=== PATIENT | male | born 1995 | race Two or more races ===

== ENCOUNTER 2018-02-07 08:02 | Emergency (ER) | payer SELFPAY ==
[~2018-02-07] VITALS: Ht 170.2 cm; Wt 81.6 kg
[2018-02-07 08:29] VITALS: BP 139/63
--- NOTE | 2018-02-07 08:36 | PHYS DOC ---
Adult General Chief Complaint Chief Complaint: KNEE INJURY HPI HPI Patient is a 22 year old who presents to the emergency department with complaints of left knee pain. Patient states while he was working last night he hit the front of his left knee on a door. Patient denies any numbness, tingling , weakness, or laxity of the joint. Currently he states his pain as a 6 out of 10, he denies any for any pain medication. He states he has not taken anything for relief of his pain yet. Patient denies any medical or surgical history, he is not allergic to any medications and does not take any medications. Review of Systems Review of Systems Constitutional: Denies fever or chills [] Musculoskeletal: See history of present illness Integument: Reports abrasion to left knee Neurologic: Denies headache, focal weakness or sensory changes [] Endocrine: Denies polyuria or polydipsia [] All other systems were reviewed and found to be within normal limits, except as documented in this note. Physical Exam Physical Exam Constitutional: Well developed, well nourished, no acute distress, non-toxic appearance. [] HENT: Normocephalic, atraumatic, bilateral external ears normal, nose normal. [] Eyes: PERRLA, conjunctiva normal, no discharge. [] Skin: Warm, dry, no erythema, no rash; small abrasion noted to anterior left knee [] Extremities: No cyanosis, no clubbing, ROM intact, no edema; anterior left knee tender to palpation, no crepitus, negative anterior and posterior drawer testing , negative valgus stress testing [] Neurologic: Alert and oriented X 3, normal motor function, normal sensory function, no focal deficits noted. [] Psychologic: Affect normal, judgement normal, mood normal. [] Current Patient Data Vital Signs Vital Signs Date Time Temp Pulse Resp B/P (MAP) Pulse Ox O2 Delivery O2 Flow Rate FiO2 02/07/18 08:29 98.1 79 16 139/63 (88) 98 Room Air 98.1 EKG EKG [] Radiology/Procedures Radiology/Procedures PROCEDURE: KNEE LEFT 3V KNEE 3 VIEWS LEFT Clinical Indication: INJURED KNEE WORKING LAST NIGHT STEPPING OUT OF AMBULANCE. HIT KNEE ON DOOR. PAIN ANTERIOR KNEE. Comparison: None. Findings: There is no acute fracture or dislocation. The tricompartmental joint spaces are maintained. The patella is in anatomic position. There is no soft tissue abnormality identified radiographically. There is no joint effusion. IMPRESSION: No acute fracture. [] Course & Med Decision Making Course & Med Decision Making Pertinent Labs and Imaging studies reviewed. (See chart for details) [] Dragon Disclaimer Dragon Disclaimer This electronic medical record was generated, in whole or in part, using a voice recognition dictation system. Departure Departure Impression: Primary Impression: Left knee pain Additional Impressions: Contusion of left knee, initial encounter Abrasion, left knee, initial encounter Disposition: HOME, SELF-CARE Condition: STABLE Referrals: JACKSON CASAREZ MD (PCP) JOSE MANUEL [place] MD Patient Instructions: Knee Pain, [id number] Additional Instructions: Recommend application of ice, elevation, and rest of affected extremity. Follow- up with Dr. Ny or your primary care doctor if symptoms persist. Return to the ER if your symptoms worsen. Problem Qualifiers Primary Impression: Left knee pain Chronicity: acute Qualified Codes: M25.562 - Pain in left knee CHARISSE LEUNG ORE PUNCHER Feb 07, 2018 08:36
--- NOTE | 2018-02-07 09:12 | RAD ---
KNEE 3 VIEWS LEFT Clinical Indication: INJURED KNEE WORKING LAST NIGHT STEPPING OUT OF AMBULANCE. HIT KNEE ON DOOR. PAIN ANTERIOR KNEE. Comparison: None. Findings: There is no acute fracture or dislocation. The tricompartmental joint spaces are maintained. The patella is in anatomic position. There is no soft tissue abnormality identified radiographically. There is no joint effusion. IMPRESSION: No acute fracture. Electronically signed by: Paulino Drew MD (02/07/2018 9:08 AM) [id number]
== END 2018-02-07 09:30 | disposition home or self-care (01) ==
LOC: ER 08:02
DX: S80.02XA Contusion of left knee, initial encounter (principal); W20.8XXA Other cause of strike by thrown, projected or falling object, initial encounter; Y93.89 Activity, other specified; Y92.89 Other specified places as the place of occurrence of the external cause; Y99.0 Civilian activity done for income or pay
CPT/HCPCS: 73562; 99283

== ENCOUNTER → 2019-12-02 | Outpatient (CLI) | payer OTHER ==
--- NOTE | 2019-12-02 16:11 | CARD ---
MR#: [id number] Date of Study: 12/02/2019 Ordering Physician: SHERINE MARTINEZ, Referring Physician: SHERINE MARTINEZ, Tech: Annalee Javed [facility] APPROVED REPORT EXAM: Two-dimensional and M-mode echocardiogram with Doppler and color Doppler. Other Information Quality : Good INDICATION Murmur 2D DIMENSIONS RVDd2.8 (2.9-3.5cm)Left Atrium(2D)3.1 (1.6-4.0cm) IVSd0.9 (0.7-1.1cm)Aortic Root(2D)2.8 (2.0-3.7cm) LVDd4.5 (3.9-5.9cm)LVOT Diameter2.3 (1.8-2.4cm) PWd0.8 (0.7-1.1cm)LVDs3.1 (2.5-4.0cm) FS (%) 30.9 %SV53.8 ml LVEF(%)58.6 (>50%) Aortic Valve AoV Peak Librado.112.2cm/sAoV VTI21.5cm AO Peak GR.5.0mmHgLVOT Peak Librado.119.5cm/s AO Mean GR.3mmHgAVA (VMAX)4.36cm2 DANETTE (VTI)4.20cm2 Mitral Valve MV E Bjwwnqjd55.1cm/sMV DECEL ACGB637fk MV A Xswaimpc26.1cm/sE/A Ratio2.2 Tricuspid Valve TR P. Wgwmqdml280cg/sRAP XMLUOLHK6kwLw TR Peak Gr.74zcJlUEIW24yiXv Pulmonary Vein S1 Snhngucm50.0cm/sD2 Iasmwoij37.3cm/s LEFT VENTRICLE The left ventricle is normal size. There is normal left ventricular wall thickness. The left ventricu lar systolic function is normal. The Ejection Fraction is 55-60%. There is normal LV segmental wall m otion. The left ventricular diastolic function and filling is normal for age. RIGHT VENTRICLE The right ventricle is normal size. The right ventricular systolic function is normal. ATRIA The left atrium size is normal. The right atrium size is normal. The interatrial septum is intact wit h no evidence for an atrial septal defect or patent foramen ovale as noted on 2-D or Doppler imaging. AORTIC VALVE The aortic valve is normal in structure and function. Doppler and Color Flow revealed no significant aortic regurgitation. There is no significant aortic valvular stenosis. MITRAL VALVE The mitral valve is normal in structure and function. There is no evidence of mitral valve prolapse. There is no mitral valve stenosis. Doppler and Color Flow revealed no mitral valve regurgitation note d. TRICUSPID VALVE The tricuspid valve is normal in structure and function. Doppler and Color Flow revealed trace tricus pid regurgitation. The PA pressure was estimated at 22 mmHg. There is no tricuspid valve stenosis. PULMONIC VALVE The pulmonic valve is not well visualized. Doppler and Color Flow revealed trace pulmonic valvular re gurgitation. There is no pulmonic valvular stenosis. GREAT VESSELS The aortic root is normal in size. The ascending aorta is normal in size. The IVC is normal in size a nd collapses >50% with inspiration. PERICARDIAL EFFUSION There is no evidence of significant pericardial effusion. Critical Notification Critical Value: No <Conclusion> The left ventricular systolic function is normal. The Ejection Fraction is 55-60%. There is normal LV segmental wall motion. Trace tricuspid regurgitation. The PA pressure was estimated at 22 mmHg. There is no evidence of significant pericardial effusion. Signed by : Ok [place], Electronically Approved : 12/02/2019 16:10:56
== END | disposition home or self-care (01) ==
LOC: ECHO 08:42
PROVIDERS: ATTEND Internal Medicine Cardiovascular Disease
DX: R01.1 Cardiac murmur, unspecified (principal)
CPT/HCPCS: 93306